=== PATIENT | female | born 1975 | race Caucasian/White ===

== ENCOUNTER 2023-05-07 07:27 | Day surgery (SDC) | payer BC ==
[2023-05-05 10:52] LABS: HCG,QUAL RESULT NEGATIVE (NEGATIVE)
[~2023-05-07] VITALS: Ht 172.7 cm; Wt 74.0 kg
[2023-05-07] MEDS ORDERED: BUPIVACAINE /PF 0.25% 30 ML VIAL INJ ONE (10:50)
[2023-05-07] MEDS ORDERED: DEXAMETHASONE SOD PHOSPHATE 4 MG/ML VIAL ONE (10:50)
[2023-05-07] MEDS ORDERED: ROPIVACAINE HCL/PF 0.2% EPIDURAL 200 ML PLAST..BAG ONE (10:50)
[2023-05-07] MEDS ORDERED: SUGAMMADEX SODIUM 200 MG/2 ML VIAL IV ONE (10:50)
[2023-05-07] MEDS ORDERED: LIDOCAINE 2%, 20 ML MDV ONE (10:50)
[2023-05-07] MEDS ORDERED: MIDAZOLAM HCL 2 MG/2 ML VIAL (VERSED) ONE (10:50)
[2023-05-07] MEDS ORDERED: fentaNYL CITRATE/PF 100 MCG/2 ML AMP ONE (10:50)
[2023-05-07] MEDS ORDERED: BUPIVACAINE /PF 0.5% 30 ML VIAL ONE (10:50)
[2023-05-07] MEDS ORDERED: PROPOFOL 200MG/ 20ML VIAL (DIPRIVAN) IV ONE (10:50)
[2023-05-07] MEDS ORDERED: NS 1000 ML IV.SOLN IV ONE (10:50)
[2023-05-07] MEDS ORDERED: METOCLOPRAMIDE HCL 10 MG/2 ML VIAL ONE (10:50)
[2023-05-07] MEDS ORDERED: ROPIVACAINE HCL/PF 0.2% EPIDURAL 100 ML PLAST..BAG ONE (10:50)
[2023-05-07] MEDS ORDERED: ceFAZolin SODIUM 2 GM VIAL ONE (10:50)
[2023-05-07] MEDS ORDERED: KETOROLAC TROMETHAMINE 30 MG VIAL ONE (10:50)
[2023-05-07] MEDS ORDERED: FUROSEMIDE 40 MG/4 ML VIAL ONE (10:50)
[2023-05-07] MEDS ORDERED: NS IRRIG SOLN 1000 ML IR ONE (10:50)
[2023-05-07] MEDS ORDERED: BUPIVACAINE /EPINEPHRINE/PF 0.25% 30 ML VIAL ONE (10:50)
[2023-05-07] MEDS ORDERED: LR 1,000 ML IV.SOLN IV ONE (10:50)
[2023-05-07] MEDS ORDERED: DESFLURANE 15 MIN GAS INH ONE (10:50)
[2023-05-07] MEDS ORDERED: ROCURONIUM BROMIDE 10 MG/ML (ZEMURON) ONE (10:50)
[2023-05-07] MEDS ORDERED: OXYCODONE/ACETAMINOPHEN 5-325 TABLET PO PRN ×2 (11:15)
[2023-05-07] MEDS ORDERED: HYDROcodone/ACETAMIN 5-325 MG TAB (NORCO/ VICODIN) PO PRN (11:15)
[2023-05-07] MEDS ORDERED: ONDANSETRON HCL 4 MG/2 ML VIAL IVP PRN ×2 (11:15→11:45)
[2023-05-07] MEDS ORDERED: LR 1,000 ML IV SCH (11:45)
[2023-05-07] MEDS ORDERED: MEPERIDINE HCL/PF 25 MG/ML DISP.SYRIN IVP PRN (11:45)
[2023-05-07] MEDS ORDERED: MIDAZOLAM HCL 2 MG/2 ML VIAL (VERSED) IVP PRN (11:45)
[2023-05-07] MEDS ORDERED: HYDROmorphone 1 MG/ML INJ. CARTRIDGE IVP PRN ×2 (11:45)
[2023-05-07] MEDS ORDERED: ACETAMINOPHEN I.V. 1000 MG 100 ML IV ONE (11:59)
[2023-05-07] MEDS ORDERED: KETOROLAC TROMETHAMINE 30 MG VIAL IVP PRN (15:00)
[2023-05-07 16:58] VITALS: BP_SYST 125
== END 2023-05-07 16:30 | disposition home or self-care (01) ==
LOC: SDS 07:27 → SMU 07:27 → SDS 16:30
PROVIDERS: ATTEND Specialist
DX: N92.0 Excessive and frequent menstruation with regular cycle (principal); D25.1 Intramural leiomyoma of uterus; N94.6 Dysmenorrhea, unspecified; N80.9 Endometriosis, unspecified; Z88.1 Allergy status to other antibiotic agents
CPT/HCPCS: 84703; 87081; 58552; 64488; 88305; 88307; J3490 ×4; J1100; J1940; J1885; J2001; J2765; J3465; J2704; J2795; J3010; J7120; J7030; C1727; J0131; S2900